=== PATIENT | female | born 1975 | race Hispanic/Latino ===

== ENCOUNTER 2025-07-04 08:34 | Emergency (ER) | payer OTHER, MEDICAID ==
[~2025-07-04] VITALS: Ht 154.9 cm; Wt 48.5 kg
[2025-07-04 08:40] VITALS: TEMP 98.1
[2025-07-04 11:00] VITALS: BP 111/81; PULSE 74; RESP 20; O2SAT 99
--- NOTE | 2025-07-04 11:39 | ERN ---
ED Note History of Present Illness Stated Complaint: BREAST PAIN Chief Complaint: Breast Problem Time Seen by MD: 08:49 Dictation: 49-year-old female presenting to the emergency department for two weeks of breast cyst over the left and now has developed one on the right side. Allergies: Coded Allergies: No Known Drug Allergies (Unverified Allergy, Unknown, 07/04/25) Past Medical History Past Medical History: Other Additional Past Medical Hx: multiple sclerosis Surgical History: Review of System Dictation Constitutional: Negative for fever,chills, and weight loss Eyes: Negative for injury, pain,redness, and discharge ENT: Negative for injury,pain or swelling Cardiovascular: Negative for chest pain, palpitations, and edema Respiratory: Negative for shortness of breath, cough, and wheezing, Abdomen/GI: Negative for abdominal pain, nausea, vomiting, diarrhea, and constipation Back: Negative for injury and pain : Negative for injury, bleeding and discharge MS/Extremity: Negative for injury and deformity Skin: Negative for rash, and discoloration Neuro: Negative for headache, weakness, numbness, tingling, and seizure Psych: Negative for suicide ideation, homicidal ideation, and hallucinations Initial Vital Sign VS Vital Signs Date Time Temp Pulse Resp B/P (MAP) Pulse Ox O2 Delivery O2 Flow Rate FiO2 07/04/25 08:36 98.1 88 16 123/47 99 Room Air 0 07/04/25 08:40 21 Physical Exam Dictation General: awake, alert, NAD Head/Face: Normocephalic, atraumatic Eyes: PERRL, EOMI, vision at baseline ENT: oral cavity clear, TMs clear, no signs of infection Neck: Trachea midline, supple, no nuchal rigidity Cardiovascular: RRR, normal S1/S2, No MRGs, no JVD Respiratory: CTAB, no respiratory distress, No rales or wheezes Abdomen: Soft, non-tender, non-distended, normal bowel sounds, no guarding or rebound. Skin: Warm, dry, normal turgor, no rash MS/Extremity: Pulses equal, no cyanosis, neurovascular intact, FROM Neuro: COAx4, GCS 15, at baseline with MS, Results (Laboratory/Radiology) Ultrasound Comment: Small cyst about 3 x 3 mm to left breast ED Course ED Course Orders Procedure Category Date Status Time Hydrocodone/Apap PHA 07/04/25 Complete 10/325 Tab (Penrose 10) 10:00 Us Breast Limited US 07/04/25 Resulted Unilateral 09:43 Current Medications Medications (Trade) Dose Ordered Sig/Binta Route PRN Reason Start Time Stop Time Status Last Admin Dose Admin Acetaminophen/ Hydrocodone Bitart (NORco 10) 1 tab ONCE ONCE PO 07/04/25 10:00 07/04/25 10:01 DC 07/04/25 10:05 Vital Signs Date Time Temp Pulse Resp B/P (MAP) Pulse Ox O2 Delivery O2 Flow Rate FiO2 07/04/25 11:00 74 20 111/81 99 Room Air* 0 21 07/04/25 10:00 67 18 124/69 97 Room Air* 0 21 07/04/25 08:40 98.1 16 16 123/47 99 Room Air* 0 21 07/04/25 08:36 98.1 88 16 123/47 99 Room Air 0 Medical Decision Making MDM MDM: Differential diagnosis: Rationale: Tests considered and ordered secondary to shared decision making include: Previous outside records reviewed: Old ER visits. Risk of complication and/or morbidity or mortality of patient management: None Medications-Per medication reconciliation Need for hospitalization: Patient does not meet criteria for hospitalization. Need for emergency major/minor surgery: No There are no social concerns with this patient. Prescription drug management Prescriptions will include symptomatic care Patient's prior external medical records from other ER visits were reviewed by me as indicated. Prior testing and results from previous visits were reviewed. Prior tests were taken into account with medical decision making and resource utilization, independent historian/historians were used to obtain complete medical history. I independently interpreted the test that were performed, results were reviewed by me and considered findings on radiology if ordered. Medical management and examination interpretation discussions were had by me with other qualified healthcare professionals as indicated for the patient's care. DX & DISP Disposition: Discharge Departure Impression: Primary Impression: Cyst of breast, left, solitary Condition: Stable Referrals: RADHA COSBY MD (PCP) IMELDA DIXON MD Jul 04, 2025 11:39
--- NOTE | 2025-07-04 13:38 | HMCIMG ---
Bilateral BREAST ULTRASOUND CLINICAL HISTORY: Breast abscess: Finding: Real-time examination of the [right/left] breast demonstrates homogeneous echotexture throughout the breast without evidence of focal solid mass. The right breast has no lesion seen between 5 and 6:00. The left breast has a small cyst at 3:00 measuring 0.3 x 0.2 x 0.3 cm.. IMPRESSION: No abscess identified Small cyst in the left breast at 3:00 CATEGORY 2: BENIGN FINDINGS Recommend monthly self breast exam as well as annual clinical examination. A negative x-ray should not delay biopsy if a dominant or clinically suspicious mass is present, since 8-10% of cancers are not identified by mammography. Dense breasts particularly, may obscure an underlying neoplasm. Some of these may be detected clinically and therefore, clinical examination is an essential part of breast evaluation. .
== END 2025-07-04 11:54 | disposition home or self-care (01) ==
LOC: EDH 08:34
DX: N60.02 Solitary cyst of left breast (principal); Z98.890 Other specified postprocedural states
CPT/HCPCS: 76642; 99284